=== PATIENT | female | born 1940 | race Caucasian/White ===

== ENCOUNTER 2019-09-01 05:47 | Outpatient (RCR) | payer MEDICARE, MEDICAID, OTHER, SELFPAY | END 2019-09-05 00:01 | LOC: ONCMED 05:47 | PROVIDERS: Family Provider Family Medicine; Visit Provider Internal Medicine Medical Oncology | DX: D46.1 Refractory anemia with ring sideroblasts (principal); E11.9 Type 2 diabetes mellitus without complications; I10 Essential (primary) hypertension; M19.90 Unspecified osteoarthritis, unspecified site; F41.8 Other specified anxiety disorders; L89.129 Pressure ulcer of left upper back, unspecified stage; F03.90 Unspecified dementia, unspecified severity, without behavioral disturbance, psychotic disturbance, mood disturbance, and anxiety; L89.159 Pressure ulcer of sacral region, unspecified stage; Z79.899 Other long term (current) drug therapy; Z79.891 Long term (current) use of opiate analgesic; Z79.84 Long term (current) use of oral hypoglycemic drugs | CPT/HCPCS: 36415 ×5; 36430 ×4; 36591; 80053 ×3; 82274; 82728 ×3; 83036; 83540 ×3; 83550 ×3; 83615 ×2; 85007; 85025 ×6; 86850 ×2; 86900 ×3; 86901 ×3; 86920 ×2; 96374 ×2; 99214; J1642 ×3; J1940 ×2; J7050 ×2; P9016 ×4; P9037 ==

== ENCOUNTER 2019-10-06 08:36 | Outpatient (RCR) | payer MEDICARE, OTHER, MEDICAID, SELFPAY | END 2019-10-06 23:59 | disposition home or self-care (01) | LOC: ONCMED 08:36 | PROVIDERS: Family Provider Family Medicine; Visit Provider Internal Medicine Medical Oncology | DX: D46.1 Refractory anemia with ring sideroblasts (principal); D47.3 Essential (hemorrhagic) thrombocythemia; R63.4 Abnormal weight loss; Z68.27 Body mass index [BMI] 27.0-27.9, adult; I10 Essential (primary) hypertension; E11.9 Type 2 diabetes mellitus without complications; M19.90 Unspecified osteoarthritis, unspecified site; F41.8 Other specified anxiety disorders; Z98.84 Bariatric surgery status ==

== ENCOUNTER 2019-10-08 06:00 | Outpatient (CLI) | payer MEDICARE, OTHER, MEDICAID, SELFPAY | END 2019-10-08 06:01 | disposition home or self-care (01) | LOC: LAB 09-22 15:17 | PROVIDERS: Family Provider Family Medicine; PCP Family Medicine; Visit Provider Nurse Practitioner Family | DX: E03.9 Hypothyroidism, unspecified (principal) | CPT/HCPCS: 84443 ==

== ENCOUNTER 2019-11-02 08:50 | Outpatient (RCR) | payer MEDICARE, OTHER, MEDICAID, SELFPAY ==
[2019-10-12 17:33] LABS: Basophils % 0.1 %; Eosinophils # 0.1 10^3/uL (0.0-0.8); Eosinophils % 0.8 %; Hematocrit 34.2 % (37.0-47.0); Hemoglobin 10.7 g/dL (11.5-15.3); Lymphocytes # 2.8 10^3/uL (0.8-4.8); Lymphocytes % 27.1 %; Mean Corpuscular HGB Conc 31.3 g/dL (30.0-36.0); Mean Corpuscular Hemoglobin 30.1 pg (28.0-34.0); Mean Corpuscular Volume 96.1 fL (81-99); Mean Platelet Volume 12.3 fL (7.4-10.4); Monocytes # 2.2 10^3/uL (0.2-0.9); Monocytes % 21.3 %; Neutrophils # 5.1 10^3/uL (1.8-7.7); Neutrophils % 49.2 %; Nucleated Red Blood Cells % 0 %; Platelet Count 37 10^3/cmm (130-400); Red Blood Count 3.56 10^6/uL (4.1-5.3); Red Cell Distribution Width 14.3 % (12.1-15.1); White Blood Count 10.4 10^3/uL (4.0-10.0)
[2019-10-19 15:51] LABS: Basophils % 0.2 %; Eosinophils # 0.1 10^3/uL (0.0-0.8); Eosinophils % 0.8 %; Hematocrit 28.8 % (37.0-47.0); Hemoglobin 8.8 g/dL (11.5-15.3); Lymphocytes # 2.5 10^3/uL (0.8-4.8); Lymphocytes % 23.9 %; Mean Corpuscular HGB Conc 30.6 g/dL (30.0-36.0); Mean Corpuscular Hemoglobin 28.5 pg (28.0-34.0); Mean Corpuscular Volume 93.2 fL (81-99); Mean Platelet Volume 12.7 fL (7.4-10.4); Monocytes # 2.4 10^3/uL (0.2-0.9); Monocytes % 22.6 %; Neutrophils % 48.3 %; Nucleated Red Blood Cells % 0 %; Platelet Count 44 10^3/cmm (130-400); Red Blood Count 3.09 10^6/uL (4.1-5.3); Red Cell Distribution Width 14.2 % (12.1-15.1); White Blood Count 10.4 10^3/uL (4.0-10.0)
[2019-10-19 22:08] LABS: Slide Review Slide Review Perform
--- NOTE | 2019-10-22 06:40 | ONC FU_ITS ---
Dr. Walden Patient Follow-Up Note Patient: Carole Marcelo Unit #: [id number]: 1940 Dicatated By: Wilner Walden M.D.Date of Visit:Oct 20, 2019 Onc Med Follow-up/Prog Note Chief Complaint: Myelodysplastic syndrome. 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 She has been anemic for several years. Her recent records included several blood counts dating back to 07/26/2016. At that time her hemoglobin was 8.8 g with hematocrit 27.0%. The red cell indices were macrocytic with MCV 107 and MCH 35. White blood cell count was 8100 and the platelet count was 448,000. The reported different included 65% neutrophils, 26% lymphocytes, 6% monocytes, 3% eosinophils, and 1% basophils. Her subsequent blood counts had shown some variability in the hemoglobin/hematocrit levels. However, as of 08/08/2016 the hemoglobin was down to 7.4 g with white blood cell count 8000 and platelet count 437,000. Other laboratory studies at that time included an uncorrected reticulocyte count of 1.6%, normal total bilirubin at 0.9 mg/dL, and elevated B12 level at 1451 pg/mL. She was not transfused during that time, but she did report having required transfusion with a previous knee surgery. I had seen her initially on 09/21/2016. CBC at that time showed hemoglobin 7.8 g with MCV 106. The white blood cell count was 7300 and the platelet count was 367,000. The uncorrected reticulocyte was 1.3%. Haptoglobin was normal 161 mg/dL with LDH normal at 156 U/L. Sedimentation rate was elevated at 76 mm/hour. Serum iron studies show transferrin saturation 23%. Ferritin was elevated at 795 ng/mL. Protein electrophoresis was normal. She underwent bone marrow aspiration/biopsy on 10/24/2016. The marrow was hypercellular, estimated at 90%. Megakaryocytes were noted to be increased with 5-10% exhibiting dyspoiesis. The red cell precursors also exhibited significant dyspoiesis. Blasts were reported at 2%. Iron stores were 2+. Ring sideroblasts were noted to comprise 15% of the population. The FISH panel for MDS was unrevealing and the standard chromosome analysis was normal. The findings were consistent with myelodysplastic syndrome (MDS with ring sideroblasts) versus a myelodysplastic/myeloproliferative neoplasm (MDS/MDN with ring sideroblasts and thrombocytosis). Her revised IPSS (IPSS-R) calculated to 2.5, low risk. Her other medical illnesses include hypertension, type II diabetes, degenerative arthritis, and anxiety/depression. She is hard of hearing. She is a nonsmoker. INTERIM HISTORY: On 12/25/2016 she began a trial of therapy with Procrit at 40,000 units weekly, with her hemoglobin level at 8.9 g and her baseline erythropoietin level 43. Initially she appeared to be showing some response, but it was not sustained. As of 02/05/2017 the Procrit dosage was increased to 60,000 units weekly. During subsequent follow-up her hemoglobin had generally been maintained in the range of 9-10 g. However, on 02/04/2018, there was a decline in her hemoglobin to 8.9 g, and 2 weeks later it had decreased to 7.9 g, at which point she did receive a transfusion of 2 units of PRBC. She was transfused again on 03/05/2018. As of 04/22/2018 her hemoglobin was back down to 7.3 g/dL. I opted not to give her any further Procrit, and she required transfusion again on 04/23/2018. On 05/27/2018 she began a trial of therapy with Revlimid 10 mg daily. She remained transfusion dependent. As of her follow-up visit on 09/10/2018 she had become severely thrombocytopenic, and her white blood cell count at that point had decreased to 2500 with ANC 400. The Revlimid was discontinued. On 09/15/2018 she was admitted to the hospital with generalized weakness. Her ANC was 800, and she did develop low-grade fever. Cultures were negative except 1 blood culture which grew coagulase-negative staph, most likely contaminant. Platelet count was still only 5000, but she had no active bleeding. She was [facility] on 09/25/2018. Her hemoglobin at that point was adequate at 9.9 g. Her white blood cell count had increased to 5900. She was still severely thrombocytopenic. Following discharge she initially was administered plateletpheresis twice weekly, but those were subsequently stopped, as she had no clinical evidence of a significant bleeding tendency. During subsequent follow-up she continued to have fairly marginal performance status, and that was further complicated by worsening of her underlying dementia. She eventually did require usp placement. In August she required extraction of 2 teeth. She was given antibiotic coverage with Augmentin, and she had no bleeding or other complications with the procedure. She otherwise continued symptomatic/supportive care. She has remained transfusion dependent. She is seen for a scheduled visit. She has been feeling okay, though she continues have very limited activity. She is able to get around the [facility] in a wheelchair, but she requires assistance getting in and out of the chair. Her ECOG score is 3. Her appetite is not very good. She is supplementing with Ensure. She has no fever or night sweats. She has no difficulty breathing. She has bowel and bladder incontinence. She has no significant joint or bone pain. She has soreness in her back associated with a decubitus skin ulceration. She has some confusion with her dementia. Medications: ALPRAZolam 1 Tablet (of 0.25 mg) Oral b.i.d. PRN, amLODIPine Besylate 1 Tablet (of 10 mg) Oral daily, Bisacodyl 1 Suppository (of 10 mg) Rectal daily PRN, cloNIDine HCl 1 Tablet (of 0.1 mg) Oral b.i.d., Daily Vitamin Tablet Oral daily, Enema 1 Suppository (of 7-19 g/118mL) Enema Rectal daily PRN, HYDROcodone-Acetaminophen 2 Tablet (of 10-325 mg) Oral q 4 hours PRN, MetFORMIN HCl 1 (500 mg) Tablet Oral daily, Milk of Magnesia 30 mL (of 400 mg/5mL) Suspension Oral daily PRN, Mirtazapine 7.5 (7.5 mg) Tablet Oral daily, Namenda 1 Tablet (of 10 mg) Oral b.i.d., Pantoprazole Sodium 1 Tablet (of 40 mg) Tablet, enteric coated Oral daily, Santyl 1 (250 Units/g) Ointment Topical daily, SM Medicated Body Powder Topical PRN, Synthroid 1 Tablet (of 88 mcg) Oral daily, Valsartan 1 Tablet (of 160 mg) Oral daily, Venlafaxine HCl ER 1 Capsule (of 150 mg) Capsule SR 24 HR Oral daily Allergies: Morphine Sulfate and Sulfa Antibiotics. Review of Systems: Constitutional - Her energy is low and she is mainly sedentary at the [facility]. Her appetite is poor, but she is drinking protein shakes. Her weight is up a few pounds. No fever, chills, hot flashes, or night sweats. ECOG score is 3, ENMT - She has sinus drainage. No mouth sores. No sore throat or difficulty swallowing, Hematologic/Lymphatic - She bruises easily, Respiratory - No shortness of breath. No cough. No pleuritic pain or hemoptysis, Cardiovascular - No angina pain. No palpitations, Gastrointestinal - No nausea or vomiting. No heartburn or acid reflux. She has diarrhea and is incontinent. No blood in the stool or black stools, Genitourinary (F) - No dysuria or hematuria. No urinary frequency. She has foul smelling urine and is incontinent, Musculoskeletal - No joint or bone pain, Integumentary - She has a bed sore on her back that is painful, Neurologic - No headache. She has vertigo. No numbness/paresthesias or other focal neurologic symptoms. She has trouble with her memory and is very confused. Her hands stay cold and numb, Psychiatric - She has anxiety and depression. No insomnia. Vital Signs: Performed on Oct 20, 2019 08:43 Height - 60.00 in Weight - 144.0 lbs (HIGH) BSA - 1.62 sq.m BMI - 28.12 Temperature - 97.2 F (LOW) Pulse - 83 /min Respiration - 18 /min BP - 95/46 mm(hg) O2 Sat - 95 % (LOW) Pain - 0 Physical Examination: Constitutional - She appears somewhat weak generally and also a little sluggish, Eyes - Sclerae nonicteric. Conjunctivae clear, ENMT - No lesions noted in the oral cavity, Hematologic/Lymphatic - No cervical, clavicular, or axillary adenopathy, Respiratory - Lungs sound clear with good air movement bilaterally, Cardiovascular - Heart rhythm is regular. There is a II/ systolic murmur. There is no gallop or rub noted, Abdomen - Soft. Liver and spleen are not enlarged. There is no abdominal mass or ascites noted and there is no inguinal adenopathy, Extremities - Mild lower extremity edema, Neurologic - No focal neurologic deficits noted. Lab/Imaging: Test performed on Oct 19, 2019 08:10 WBC 10.4 10^9/L RBC 3.09 10^12/L HGB 8.8 g/dL HCT 28.8 % MCV 93.2 fl MCH 28.5 pg MCHC 30.6 g/dL RDW 14.2 % Platelet Count 44 10^9/L MPV 12.7 fL Neutrophils (Gran) 5.0 10^9/L Lymphocytes 2.5 10^9/L Monocytes 2.4 10^9/L Eosinophils 0.1 10^9/L Basophils 0.0 10^9/L Manual Lymphocytes 23.9 % Manual Monocytes 22.6 % Manual Eosinophils 0.8 % Manual Basophils 0.2 % NRBCs 0.0 /100 WBC Impression: 1. Patient with moderately severe, macrocytic anemia. Bone marrow aspiration/biopsy on 10/24/2016 showed findings were consistent with a myelodysplastic syndrome (MDS with ring sideroblasts) or a myelodysplastic/myeloproliferative neoplasm (MDS/MDN with ring sideroblasts and thrombocytosis). Her IPSS-R score calculated to 2.5, low risk. 2. She has significant underlying dementia. Her other medical illnesses include: 3. Hypertension. 4. Type II diabetes. 5. Degenerative arthritis. 6. Anxiety/depression. 7. She has a prior history of gastric banding. In December 2016 she began a trial of therapy with Procrit at 40,000 units weekly, with her hemoglobin at 8.9 g and baseline erythropoietin level 43. She initially appeared to have some response, but it was not sustained. As of 02/05/2017 her Procrit dosage was increased to 60,000 units weekly. During this time she had been showing a significant decline in her performance status. As it turns out, some of that may been related to an [id number] diet pill, as she did feel much better after she stopped taking it. She then continued Procrit at 60,000 units weekly with her target hemoglobin at 10 g. She appeared to have clinical benefit, maintaining her hemoglobin in the range of 9010 g. However, as of February 2018 her hemoglobin had dropped below 8 g. She required transfusion twice that month and again on 04/23/2018. During this time there had been some decline in her performance status. At that point I did opt to discontinue the Procrit. On 05/27/2018 she began a trial of therapy with Revlimid 10 mg daily. She required further transfusions on 05/30/2018 and again on 06/26/2018, but as of her follow-up visit on 07/01/2018 she had tolerated the Revlimid with no apparent adverse effects. During subsequent follow-up she remained transfusion dependent. As of her visit on 09/10/2018 she had become severely thrombocytopenic. She also had moderately severe neutropenia. The Revlimid was put on hold. During subsequent follow-up she there was a very gradual increase in her granulocyte count and in her platelet count, though she remained transfusion dependent and she continued to have pretty marginal performance status. That problem was further complicated due to her significant underlying dementia, which eventually necessitated usp placement. She has since then continued to require transfusion on a regular basis. Her platelet count as fluctuated up and down, but thus far she has not had bleeding complications with it. Her granulocyte count has remained adequate. Her overall clinical status has been stable. Plan: At least for now I will continue to monitor her blood counts weekly and transfuse PRBC as needed. However, with her previous bone marrow showing ring sideroblasts, she may qualify for a trial of therapy with luspatercept, which recently has been shown to have benefit in the treatment of patients with transfusion dependent MDS with ring sideroblasts. Signed By: Wilner Walden M.D. <<Signature on File>>
[2019-10-26 09:24] LABS: Add Urine Culture? Yes; Add Urine Microscopic? YES; Bacteria Urine 4+; Bilirubin Urine Neg (NEGATIVE); Blood Urine Neg (Negative); Glucose Urine UA Norm (Normal); Ketones Urine Negative (Negative); Leukocyte Esterase Urine Negative (Negative); Mucus Urine 1+; Nitrate Urine Negative (Negative); Protein Urine Neg (Negative); Squamous Epithelial Cell Urine 0-4 (0-5); Sulfosalicylic Acid Urine Negative; Urine Appearance Cloudy (CLEAR); Urine Color Yellow (Yellow); Urobilinogen Urine Norm (Negative); pH Urine 8.5 (5-7)
[2019-10-26 11:59] LABS: Basophils % 0.2 %; Eosinophils # 0.1 10^3/uL (0.0-0.8); Eosinophils % 0.5 %; Lymphocytes # 3.1 10^3/uL (0.8-4.8); Lymphocytes % 23.2 %; Mean Corpuscular HGB Conc 33.7 g/dL (30.0-36.0); Mean Corpuscular Hemoglobin 31.7 pg (28.0-34.0); Mean Corpuscular Volume 94.1 fL (81-99); Mean Platelet Volume 12.3 fL (7.4-10.4); Monocytes # 3.9 10^3/uL (0.2-0.9); Monocytes % 28.9 %; Neutrophils # 5.2 10^3/uL (1.8-7.7); Neutrophils % 38.5 %; Nucleated Red Blood Cells % 0.1 %; Platelet Count 42 10^3/cmm (130-400); Red Blood Count 2.21 10^6/uL (4.1-5.3); Red Cell Distribution Width 13.7 % (12.1-15.1); White Blood Count 13.4 10^3/uL (4.0-10.0)
[2019-10-26 13:12] LABS: Slide Review Slide Review Perform
[2019-10-26 13:13] LABS: Hematocrit 20.8 % (37.0-47.0)
[2019-10-27] VITALS (10 sets, daily range): BP systolic 120–148; BP diastolic 58–74; PULSE 84–90; RESP 17–18; TEMP 36.3–36.9; O2SAT 94–100
[2019-10-27] MEDS: diphenhydrAMINE 25 mg Capsule PO (09:00)
[2019-10-27] MEDS: sodium chloride 0.9% 250 ML 999 ML IV (09:00)
[2019-10-27] MEDS: FUROsemide 10 mg/mL SDV 2mL 20 MG IV (11:40)
[2019-10-27] MEDS: acetaminophen 325 mg Tablet 650 MG PO (16:02)
[2019-11-02 15:39] LABS: Basophils % 0.2 %; Eosinophils # 0.1 10^3/uL (0.0-0.8); Eosinophils % 0.6 %; Hematocrit 31.5 % (37.0-47.0); Hemoglobin 10.2 g/dL (11.5-15.3); Lymphocytes # 2.8 10^3/uL (0.8-4.8); Lymphocytes % 23.7 %; Mean Corpuscular HGB Conc 32.4 g/dL (30.0-36.0); Mean Corpuscular Hemoglobin 30.4 pg (28.0-34.0); Mean Corpuscular Volume 93.8 fL (81-99); Mean Platelet Volume 11.2 fL (7.4-10.4); Monocytes # 2.6 10^3/uL (0.2-0.9); Monocytes % 21.5 %; Neutrophils # 5.9 10^3/uL (1.8-7.7); Neutrophils % 49.2 %; Nucleated Red Blood Cells % 0 %; Red Blood Count 3.36 10^6/uL (4.1-5.3); Red Cell Distribution Width 14.6 % (12.1-15.1)
[2019-11-02 16:37] LABS: Platelet Count 30 10^3/cmm (130-400); Slide Review Slide Review Perform
== END 2019-11-06 23:59 | disposition home or self-care (01) ==
LOC: ONCMED 08:50
PROVIDERS: Nurse Practitioner; Family Provider Family Medicine; PCP Family Medicine; Visit Provider Internal Medicine Medical Oncology
DX: D46.1 Refractory anemia with ring sideroblasts (principal); I10 Essential (primary) hypertension; E11.9 Type 2 diabetes mellitus without complications; M19.90 Unspecified osteoarthritis, unspecified site; F41.8 Other specified anxiety disorders; F03.90 Unspecified dementia, unspecified severity, without behavioral disturbance, psychotic disturbance, mood disturbance, and anxiety; L89.109 Pressure ulcer of unspecified part of back, unspecified stage; Z98.84 Bariatric surgery status; Z79.899 Other long term (current) drug therapy; Z79.84 Long term (current) use of oral hypoglycemic drugs
CPT/HCPCS: 36415; 36430; 81003; 85025; 86850; 86900; 87077; 87086; 87186; 99214; J1940; J7050; P9040

== ENCOUNTER 2019-11-17 08:24 | Day surgery (SDC) | payer MEDICARE, MEDICAID, OTHER, SELFPAY ==
[2019-11-17 08:44] VITALS: BP 141/74; PULSE 96; RESP 18; TEMP 36.9; O2SAT 99
[2019-11-17] MEDS: sodium chloride 0.9% 1,000 ML 30 ML IV (09:12)
--- NOTE | 2019-11-17 09:31 | P.ANESASSM_ITS ---
Pre-Anesthetic Assessment Pre-Anesthetic Assessment: Height/Weight: Height 1.63 m Weight 89.811 kg Temp Pulse Resp BP Pulse Ox 98.5 F 96 18 141/74 99 11/17/19 08:44 11/17/19 08:44 11/17/19 08:44 11/17/19 08:44 11/17/19 08:44 Preop Diagnosis: Undesired Port-A-Cath Proposed Procedure: Operation Date: 11/17/19 09:50 Proposed Procedures p Portacath Removal 88448 D64.9(Not Applicable) - Luis Parker MD Last intake: Intake Last Liquid Date 11/17/19 Last Liquid Time 07:00 Last Solid Date 11/16/19 Last Solid Time 19:00 Social: Social History: Tobacco (quit) and No alcohol Exam: Pre-Anes Outpt Exam: alert, clear to auscultation bilaterally (course) and regular rate & rhythm Airway: Submandibular: WNL Cervical ROM: WNL MP: 2 Dentition: Partials (Upper and lower,) History/ROS: No significant history except as noted Pulmonary: Pulmonary: None reported CV/HEM: CV/HEM: HTN : : UTI Hepatic: Hepatic: None reported GI: GI: None reported Musc/skel: Musc/skel: OA/DJD and Weakness (unable to ambulate) Neuropsych: Neuropsych: Dementia Anesthetic Plan: Anesthesia: MAC Risk of > 500 ml blood loss (7ml/kg in children): No Meds/Allergies Current Medications: Current Medications Generic Name Dose Route Start Last Admin Trade Name Freq PRN Reason Stop Dose Admin Sodium Chloride 1,000 mls @ 30 ml s/hr 11/17/19 07:30 11/17/19 09:12 Sodium Chloride 0.9% IV 11/18/19 07:29 30 mls/hr .Q24H BRITTANEY Administration PFSH Anesthesia PFSH: Medical History Arthritis Dementia Diabetes Hypertension Surgical History History of appendectomy (1954) History of arthroplasty of left knee (2010) History of bilateral cataract extraction (2010) History of bone marrow biopsy (2016) History of hysterectomy (1972) with bilateral salpingo-oophorectomy History of removal of cyst (2007) Left breast- Benign History of tonsillectomy (195) History of urinary tract surgery (2008) Urinary incontinence surgery unspecified Family History Father , Age 61 Cancer Prostate Mother , Age 83 Heart problem Brother Myocardial infarction Sister Heart problem Sister Diabetes Denies family history of Anesthesia complication Bleeding disorder Social History Smoking and tobacco status: former smoker Second hand smoke exposure: No Alcohol intake: never Adopted: No Caregiver/support person: No Lives independently: No Housing: Custodial Marital status: / service: No Current occupational status: retired and disabled Current occupational exposures/hazards: No Pets and animals: No History of recent travel: No Sexually active: No Current gender identity: Female Yolanda/[employer]: [employer] Special yolanda needs: No Agree to transfusion: No Financial difficulty paying for basics: Decline to Answer Female Reproductive History: Date of last menstrual period: 11/17/69 Data Anesthesia Cardiac Studies: No Data to Display
[2019-11-17 09:43] LABS: Basophils % 0.2 %; Eosinophils # 0.1 10^3/uL (0.0-0.8); Eosinophils % 0.8 %; Hematocrit 24.5 % (37.0-47.0); Hemoglobin 7.7 g/dL (11.5-15.3); Lymphocytes # 3.1 10^3/uL (0.8-4.8); Lymphocytes % 26.8 %; Mean Corpuscular HGB Conc 31.4 g/dL (30.0-36.0); Mean Corpuscular Hemoglobin 27.8 pg (28.0-34.0); Mean Corpuscular Volume 88.4 fL (81-99); Mean Platelet Volume 11.9 fL (7.4-10.4); Monocytes # 3.9 10^3/uL (0.2-0.9); Monocytes % 33.9 %; Neutrophils # 3.5 10^3/uL (1.8-7.7); Neutrophils % 30.9 %; Nucleated Red Blood Cells % 0 %; Red Blood Count 2.77 10^6/uL (4.1-5.3); Red Cell Distribution Width 14.2 % (12.1-15.1); White Blood Count 11.4 10^3/uL (4.0-10.0)
[2019-11-17 10:17] VITALS: BMI 34.0
--- NOTE | 2019-11-17 10:30 | P.HPUD_ITS ---
H&P update H&P Update: DATE OF SURGERY/PROCEDURE: 11/17/19 DATE H&P PERFORMED: H&P UPDATE INFORMATION: H&P completed within last 30 days and Changes to prior documentation as noted here (Repeat CBC today showed platelets of 21,000 after further discussion with Dr. Walden as he has been seeing the patient for quite some time he believes that clinically would not be of concern and if there is any issue we can always give her platelets later on but at this point he feels comfortable by proceeding of the explantation of the right upper chest Port-A-Cath also I did talk with the power of deputy commonwealth's attorney and she did agree to proceed accordingly) PREOP DIAGNOSIS: Undesired Port-A-Cath PRIMARY INDICATION FOR PROCEDURE: Undesired Port-A-Cath PLANNED PROCEDURE: Operation Date: 11/17/19 09:50 Proposed Procedures p Portacath Removal 34786 D64.9(Not Applicable) - Luis Parker MD Full H&P Medications/Allergies: Current Medications: Current Medications Generic Name Dose Route Start Last Admin Trade Name Freq PRN Reason Stop Dose Admin Sodium Chloride 1,000 mls @ 30 ml s/hr 11/17/19 07:30 11/17/19 09:12 Sodium Chloride 0.9% IV 11/18/19 07:29 30 mls/hr .Q24H BRITTANEY Administration Perinent History: Medical/Surgical History: Medical History (Updated 11/10/19 @ 14:37 by Luis Parker MD) Arthritis (Acute) Dementia (Acute) Diabetes (Acute) Hypertension (Acute) Family History: Family History (Updated 11/09/19 @ 10:36 by Caroline Baird RN) Father , Age 61 Cancer Prostate Mother , Age 83 Heart problem Brother Myocardial infarction Sister Heart problem Sister Diabetes Denies family history of Anesthesia complication Bleeding disorder Social History: Social History Smoking and tobacco status: former smoker Second hand smoke exposure: No Alcohol intake: never Adopted: No Caregiver/support person: No Lives independently: No Housing: Snf Marital status: / service: No Current occupational status: retired and disabled Current occupational exposures/hazards: No Pets and animals: No History of recent travel: No Sexually active: No Current gender identity: Female Yolanda/[employer]ism: [employer] Special yolanda needs: No Agree to transfusion: No Financial difficulty paying for basics: Decline to Answer
[2019-11-17 10:36] LABS: Platelet Count 21 10^3/cmm (130-400)
[2019-11-17 10:37] LABS: Slide Review Slide Review Perform
[2019-11-17 10:39] LABS: Absolute Segmented Neutrophil 2.3 10/cmm (1.6-7.1); Band Neutrophils Absolute 1.1 10^3/cmm (0.0-1.2); Lymphocytes 29 %; Lymphocytes Absolute 3.6 10^3/cmm (1.2-3.4); Monocytes Absolute 3.5 10^3/cmm (0.1-0.6); Segmented Neutrophils 21 %; Total Cells Counted 100 (0-100)
[2019-11-17 10:40] LABS: Blastocytes 1 % (0-0); Platelet Estimate Decreased (Normal)
--- NOTE | 2019-11-17 10:57 | SUR.PREOP ---
DOCTOR SOTO DISCUSSED WITH PT'S DAUGHTER THE CONDITION OF PT'S LAB WORK AND FAMILY AGREED TO PROCEED WITH SURGERY.
[2019-11-17] MEDS: lidocaine 2% INJ 20 mL INJECTION (11:16)
--- NOTE | 2019-11-17 11:38 | P.OP_ITS ---
Operative Report Date of procedure: November 17, 2019 Pre-op Diagnosis: Undesired Port-A-Cath Post-op diagnosis: same Procedure Done: Explantation of right upper chest Port-A-Cath Surgeon: Luis Parker Photographic Platemaker: senior director of global commercial technology solutions Sara Moe Medical student Jostin Elizondo Anesthesia: MAC (PROJECT FINANCE ANALYST Smart) Condition: stable Disposition: same day Brief History: Plan of care; After thorough history physical examination and reviewing the chart, I counseled the patient for Port-A-Cath explanted, indications, risks including pneumothorax and injury of major vascular structures, benefits, and alternatives were all discussed with the patient, patient understands and is interested to proceed. Particular emphasis on potential high risk of bleeding due to low platelets Informed consent per chart Assurance and education All questions have been answered Procedure: Explantation of port; Patient was identified in the holding area and the site of the port was marked by me on the right upper chest, patient was then taken to the operative room and placed in supine position IV propofol was given by the anesthesia provider ,both arms were tucked,Time-out was done verifying the patient's name/date of bir th/planned procedure and destination after the procedure, all were in agreement. SCDs confirmed to be functioning, preoperative antibiotics administered per protocol, and beta mercedez protocol was confirmed, appropriate positioning of the patient was done by me. Prep and drape of the upper chest was done under the usual sterile technique,injection of lidocaine 2% at the site of the planned incision(right upper chest) started by an transverse incision including the previous scar of the Port-A-Cath placement, the port was then explanted after taking down the Prolene sutures attaching the port to the surrounding tissues, at this point the catheter was removed at the same time direct pressure was applied at the site of the right subclavian stick to prevent bleeding. Thorough irrigation of the Port-A-Cath cavity was done followed by hemostasis, pressure was sustained for at least 12 minutes to prevent bleeding at the stick site Closure using 3/0 Vicryl as subdermal sutures was achieved , followed by 4-0 nylon sutures to approximate skin edges , followed by pressure dressing. Count was completed at the end of the procedure Patient tolerated the procedure well Patient was then transferred to the recovery area in stable condition I was present for the whole entire procedure
[2019-11-17 11:40] VITALS: BP 144/49; PULSE 96; RESP 16; TEMP 36.3; O2SAT 95
[2019-11-17 12:50] VITALS: BP 154/87; PULSE 95; RESP 18; TEMP 36.7; O2SAT 98
== END 2019-11-17 12:55 | disposition home or self-care (01) ==
PROVIDERS: Family Provider Family Medicine; PCP Family Medicine; Visit Provider Surgery
PROC: (CPT 36589; principal; 2019-11-17 09:50)
DX: Z45.2 Encounter for adjustment and management of vascular access device (principal); M19.90 Unspecified osteoarthritis, unspecified site; E11.9 Type 2 diabetes mellitus without complications; Z79.84 Long term (current) use of oral hypoglycemic drugs; F03.90 Unspecified dementia, unspecified severity, without behavioral disturbance, psychotic disturbance, mood disturbance, and anxiety; I10 Essential (primary) hypertension; Z82.49 Family history of ischemic heart disease and other diseases of the circulatory system; Z83.3 Family history of diabetes mellitus; Z87.891 Personal history of nicotine dependence
CPT/HCPCS: 36589; 12345; 36415; 85007; 85025; J0690; J2001; J2704; J7030

== ENCOUNTER → 2019-11-25 09:11 | Outpatient (BNVA) | payer MEDICARE, OTHER, MEDICAID, SELFPAY | PROVIDERS: Family Provider Family Medicine; PCP Family Medicine; Visit Provider Specialist | DX: G31.83 Neurocognitive disorder with Lewy bodies (principal); F02.80 Dementia in other diseases classified elsewhere, unspecified severity, without behavioral disturbance, psychotic disturbance, mood disturbance, and anxiety; Z87.891 Personal history of nicotine dependence | CPT/HCPCS: 99214 ==

== ENCOUNTER 2019-12-10 08:25 | Outpatient (RCR) | payer MEDICARE, MEDICAID, OTHER, SELFPAY ==
[2019-12-08 14:02] LABS: Basophils % 0.1 %; Eosinophils % 0.1 %; Lymphocytes # 2.7 10^3/uL (0.8-4.8); Lymphocytes % 32.3 %; Mean Corpuscular Hemoglobin 27.7 pg (28.0-34.0); Mean Corpuscular Volume 89.4 fL (81-99); Mean Platelet Volume 12.6 fL (7.4-10.4); Monocytes # 1.9 10^3/uL (0.2-0.9); Monocytes % 22.2 %; Neutrophils # 3.6 10^3/uL (1.8-7.7); Neutrophils % 42.4 %; Nucleated Red Blood Cells % 0.4 %; Red Blood Count 1.41 10^6/uL (4.1-5.3); White Blood Count 8.4 10^3/uL (4.0-10.0)
[2019-12-08 14:19] LABS: Alanine Aminotransferase 52 U/L (0-33); Albumin Level 3.3 g/dL (3.5-5.2); Alkaline Phosphatase 107 IU/L (35-105); Anion Gap 25.5 (5-19); Aspartate Amino Transferase 71 U/L (0-32); Blood Urea Nitrogen 23 mg/dL (8-23); Calcium 9.2 mg/dL (8.5-10.5); Carbon Dioxide 20 mmol/L (22-29); Chloride 95 mmol/L (98-107); Glucose 201 mg/dL (65-115); Lactate Dehydrogenase 142 U/L (135-214); Potassium 4.5 mmol/L (3.5-5.1); Sodium 136 mmol/L (136-145); Total Bilirubin 0.7 mg/dL (0.15-1.2); Total Protein 6.3 g/dL (6.6-8.7)
[2019-12-08 14:35] LABS: Hematocrit 12.6 % (37.0-47.0); Hemoglobin 3.9 g/dL (11.5-15.3); Platelet Count 10 10^3/cmm (130-400)
[2019-12-08 14:38] LABS: Slide Review Slide Review Perform
[2019-12-10 11:45] LABS: Eosinophils % 0.2 %; Lymphocytes # 3.1 10^3/uL (0.8-4.8); Lymphocytes % 35.4 %; Mean Corpuscular HGB Conc 31.6 g/dL (30.0-36.0); Mean Corpuscular Hemoglobin 27.7 pg (28.0-34.0); Mean Corpuscular Volume 87.7 fL (81-99); Mean Platelet Volume 13.6 fL (7.4-10.4); Monocytes # 1.4 10^3/uL (0.2-0.9); Monocytes % 15.7 %; Neutrophils # 3.9 10^3/uL (1.8-7.7); Neutrophils % 45.3 %; Nucleated Red Blood Cells # 0.1 /100WBC; Nucleated Red Blood Cells % 0.6 %; White Blood Count 8.7 10^3/uL (4.0-10.0)
[2019-12-10 12:18] LABS: Alanine Aminotransferase 48 U/L (0-33); Albumin Level 3.1 g/dL (3.5-5.2); Alkaline Phosphatase 112 IU/L (35-105); Anion Gap 21.6 (5-19); Aspartate Amino Transferase 61 U/L (0-32); Blood Urea Nitrogen 19 mg/dL (8-23); Calcium 9.4 mg/dL (8.5-10.5); Carbon Dioxide 23 mmol/L (22-29); Chloride 96 mmol/L (98-107); Globulin 3.2 g/dL (1.3-4.6); Glucose 119 mg/dL (65-115); Potassium 4.6 mmol/L (3.5-5.1); Sodium 136 mmol/L (136-145); Total Bilirubin 0.7 mg/dL (0.15-1.2); Total Protein 6.3 g/dL (6.6-8.7)
[2019-12-10 13:05] LABS: Hemoglobin 3.6 g/dL (11.5-15.3)
[2019-12-10 13:06] LABS: Hematocrit 11.4 % (37.0-47.0); Platelet Count 11 10^3/cmm (130-400); Slide Review Slide Review Perform
--- NOTE | 2019-12-13 21:05 | ONC FU_ITS ---
[facility] Patient Note Patient: Carole Marcelo Unit #: [id number]: 1940 Dictated By: Abdon SinghDate of Visit: Dec 09, 2019 Onc MED Follow-Up/Prog Note Chief Complaint: Myelodysplastic syndrome. 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 She has been anemic for several years. Her recent records included several blood counts dating back to 07/26/2016. At that time her hemoglobin was 8.8 g with hematocrit 27.0%. The red cell indices were macrocytic with MCV 107 and MCH 35. White blood cell count was 8100 and the platelet count was 448,000. The reported different included 65% neutrophils, 26% lymphocytes, 6% monocytes, 3% eosinophils, and 1% basophils. Her subsequent blood counts had shown some variability in the hemoglobin/hematocrit levels. However, as of 08/08/2016 the hemoglobin was down to 7.4 g with white blood cell count 8000 and platelet count 437,000. Other laboratory studies at that time included an uncorrected reticulocyte count of 1.6%, normal total bilirubin at 0.9 mg/dL, and elevated B12 level at 1451 pg/mL. She was not transfused during that time, but she did report having required transfusion with a previous knee surgery. Dr Walden had seen her initially on 09/21/2016. CBC at that time showed hemoglobin 7.8 g with MCV 106. The white blood cell count was 7300 and the platelet count was 367,000. The uncorrected reticulocyte was 1.3%. Haptoglobin was normal 161 mg/dL with LDH normal at 156 U/L. Sedimentation rate was elevated at 76 mm/hour. Serum iron studies show transferrin saturation 23%. Ferritin was elevated at 795 ng/mL. Protein electrophoresis was normal. She underwent bone marrow aspiration/biopsy on 10/24/2016. The marrow was hypercellular, estimated at 90%. Megakaryocytes were noted to be increased with 5-10% exhibiting dyspoiesis. The red cell precursors also exhibited significant dyspoiesis. Blasts were reported at 2%. Iron stores were 2+. Ring sideroblasts were noted to comprise 15% of the population. The FISH panel for MDS was unrevealing and the standard chromosome analysis was normal. The findings were consistent with myelodysplastic syndrome (MDS with ring sideroblasts) versus a myelodysplastic/myeloproliferative neoplasm (MDS/MDN with ring sideroblasts and thrombocytosis). Her revised IPSS (IPSS-R) calculated to 2.5, low risk. Her other medical illnesses include hypertension, type II diabetes, degenerative arthritis, and anxiety/depression. She is hard of hearing. She is a nonsmoker. INTERIM HISTORY: On 12/25/2016 she began a trial of therapy with Procrit at 40,000 units weekly, with her hemoglobin level at 8.9 g and her baseline erythropoietin level 43. Initially she appeared to be showing some response, but it was not sustained. As of 02/05/2017 the Procrit dosage was increased to 60,000 units weekly. During subsequent follow-up her hemoglobin had generally been maintained in the range of 9-10 g. However, on 02/04/2018, there was a decline in her hemoglobin to 8.9 g, and 2 weeks later it had decreased to 7.9 g, at which point she did receive a transfusion of 2 units of PRBC. She was transfused again on 03/05/2018. As of 04/22/2018 her hemoglobin was back down to 7.3 g/dL. It was opted not to give her any further Procrit, and she required transfusion again on 04/23/2018. On 05/27/2018 she began a trial of therapy with Revlimid 10 mg daily. She remained transfusion dependent. As of her follow-up visit on 09/10/2018 she had become severely thrombocytopenic, and her white blood cell count at that point had decreased to 2500 with ANC 400. The Revlimid was discontinued. On 09/15/2018 she was admitted to the hospital with generalized weakness. Her ANC was 800, and she did develop low-grade fever. Cultures were negative except 1 blood culture which grew coagulase-negative staph, most likely contaminant. Platelet count was still only 5000, but she had no active bleeding. She was discharged to the custodial on 09/25/2018. Her hemoglobin at that point was adequate at 9.9 g. Her white blood cell count had increased to 5900. She was still severely thrombocytopenic. Following discharge she initially was administered platelet pheresis twice weekly, but those were subsequently stopped, as she had no clinical evidence of a significant bleeding tendency. During subsequent follow-up she continued to have fairly marginal performance status, and that was further complicated by worsening of her underlying dementia. She eventually did require custodial placement. In August she required extraction of 2 teeth. She was given antibiotic coverage with Augmentin, and she had no bleeding or other complications with the procedure. She otherwise continued symptomatic/supportive care. She has remained transfusion dependent. Her family recently elected to stop doing transfusions. The requested that her Port-A-Cath be removed as well. She was seen in October at which time her hemoglobin was 10.2 after transfusion services and her platelet count was 30. Follow-up hemoglobin in November was 7.2 and platelet count was 15. Dr. Walden had talked with them about possibly starting her on luspatercept as it has shown response in MDS with ring siderblasts. We were able to obtain the drug for her through the drug company. Labs were drawn on Mrs. Marcelo yesterday and a hemoglobin of 3.9 was reported. Her platelet count was noted to be 10,000. Her white count was 8.4 with a neutrophil count of 3600. Creatinine 0.9 potassium 4.6 LFTs were. She is here today for transfusion services and to start the luspatercept. Her dementia has worsened since last time I saw her. She is jovial when she answers and seems to answer appropriately but her responses are very limited. She follows commands well. Her daughter Rocío accompanies her to the visit today. Rocío states that she is had no new problems that she is aware of other than they have noticed that she is been really draggy and more short of breath. She had no fevers or chills no mouth sores sore throat or difficulty swallowing. She states she is not been aware of any problems with her bowels or bladder. And Ms. Marcelo has denied any new pain. Her ECOG is 4 today due to the hemoglobin of 3.9. Past Medical History: Anxiety/depression Degenerative arthritis Hypertension Type II diabetes Past Surgical History: PREVNAR 13 - IS DUE TO HAVE ON 09/25/2019 AFLURIA QUAD (FLU VACCINE) in 2019 Bone marrow biopsy in 2016 Right total knee arthroplasty in 2013 Bilateral cataract excisions in 2010 Left total knee arthroplasty in 2010 Urinary incontinence surgery unspecified in 2008 Excision of benign cyst from the left breast in 2007 Lap band in 2005 Hysterectomy with bilateral salpingo-oophorectomy in 1972 Tonsillectomy in 1958 Appendectomy in 1954 Allergies: Morphine Sulfate and Sulfa Antibiotics. Medications: ALPRAZolam 1 Tablet (of 0.25 mg) Oral b.i.d. PRN Bisacodyl 1 Suppository (of 10 mg) Rectal daily PRN cloNIDine HCl 1 Tablet (of 0.1 mg) Oral daily Daily Vitamin Tablet Oral daily Enema 1 Suppository (of 7-19 g/118mL) Enema Rectal daily PRN HYDROcodone-Acetaminophen 2 Tablet (of 10-325 mg) Oral q 4 hours PRN MetFORMIN HCl 1 (500 mg) Tablet Oral daily Milk of Magnesia 30 mL (of 400 mg/5mL) Suspension Oral daily PRN Mirtazapine 1 Tablet (of 15 mg) Oral daily Pantoprazole Sodium 1 Tablet (of 40 mg) Tablet, enteric coated Oral daily Santyl 1 (250 Units/g) Ointment Topical daily SM Medicated Body Powder Topical PRN Synthroid 1 Tablet (of 88 mcg) Oral daily Venlafaxine HCl ER 1 Capsule (of 150 mg) Capsule SR 24 HR Oral daily Family History: Ms. Marcelo's mother at age 83: hear problems. Ms. Marcelo's father at age 61: prostate cancer. Ms. Marcelo has 2 brothers: 2 . Ms. Marcelo's first brother's heart attack. Another brother's broken neck. She has 2 sisters: 2 . Father of prostate cancer at age 61. Her mother of heart disease at age 83. A brother of heart attack age 78, and 1 sister also may have of heart disease. Another sister with complications of diabetes. Social History: Ms. Marcelo is and she is retired. Ms. Marcelo has never smoked. She has no history of drinking. Ms. Marcelo reports the following support systems: lives with spouse, significant other, family, or friends, lives in a custodial, supportive family/friends willing to assist with needs, and adequate transportation available for expected visits. Her diet consists of regular meals. She indicates her activity level as: daily activities. She is a nonsmoker. She does not drink alcohol. Review Of Symptoms: Constitutional Denies fevers, chills, night sweats. She has excessive fatigue. Daughter reports that Ms Marcelo is losing weight due to dementia and not eating. Ms Marcelo is in a care home facility. Allergic/Immunologic No reactions. ENMT Denies changes in hearing, sore throat, mouth sores, difficulty or changes in swallowing ability, and/or sinus drainage. Endocrine No diabetes, thyroid disease or hormone replacement. Denies hot flashes or night sweats. Hematologic/Lymphatic Denies bleeding. The patient denies any tender or palpable lymph nodes. Respiratory Denies dyspnea on exertion, chest pain, cough or hemoptysis. Denies orthopnea. Cardiovascular Denies anginal chest pain, palpitations or orthopnea. SOB with exertion. Gastrointestinal Denies nausea, vomiting, diarrhea, GI bleeding, or constipation. Denies change in bowel habits and/or stool color, no heartburn or early satiety. Genitourinary (F) No hematuria, hesitancy, incontinence, vaginal bleeding, discharge or other problems with urination. Musculoskeletal Denies joint pain, swelling or redness. No decreased range of motion. Still requires 2 person assist with transferring from bed to chair, etc. Integumentary Denies chronic rashes, inflammation, ulcerations or skin changes. Neurologic Denies headache, blurred vision, and no areas of focal weakness or numbness. Normal gait. No sensory problems. Psychiatric Denies insomnia, depression, kate or mood swings. Vital Signs: Performed on Dec 09, 2019 09:08 Height - 60.00 in Weight - 131.0 lbs (LOW) BSA - 1.56 sq.m BMI - 25.58 Temperature - 97.5 F (LOW) Pulse - 95 /min Respiration - 24 /min BP - 101/51 mm(hg) O2 Sat - 86 % (LOW) Pain - 0,4 - Completely disabled, totally confined to bed or chair. Cannot carry on any self-care. (ECOG) Physical Examination: Constitutional Alert. no acute distress. Skin pale, warm and dry. Head Normocephalic; atraumatic. Eyes Conjunctivae and sclerae are clear and without icterus. Pupils are reactive and equal. Hematologic/Lymphatic No petechiae or purpura. Respiratory Lungs are clear to auscultation without rhonchi or wheezing. Cardiovascular Regular rate and rhythm of heart without murmurs,clicks, gallops or rubs. Abdomen Non-tender, non-distended, no masses, ascites. No guarding or rebound tenderness. No pulsatile masses. Back/Spine Non-tender to palpation. Extremities No visible deformities, no cyanosis, clubbing or edema. Pulses 4+ and equal bilaterally. Musculoskeletal No tenderness or swelling, normal range of motion but generalized weakness noted in lower extremities. She does require 2 person assist to transfer from the chair to exam table and transport vehicle. Integumentary No rashes or lesions. Neurologic Pleasant and alert Psychiatric Alert and orientation is inconsistent. Coherent speech when she does speak. Mrs Marcelo's daughter verbalizes understanding of our discussions today. Laboratory:Test performed on Dec 08, 2019 12:45 LDH (Total) 142 U/L Sodium 136 mmol/L Potassium 4.5 mmol/L Chloride 95 mmol/L CO2 20 mmol/L Anion Gap 25.5 BUN 23 mg/dL Creatinine 0.9 mg/dL Cr Clearance (Est) 49.11 mL/min Glucose 201 mg/dL Calcium 9.2 mg/dL Protein, Total 6.3 g/dL Albumin 3.3 g/dL Globulin 3.0 g/dL Bilirubin, Total 0.7 mg/dL ALT (SGPT) 52 U/L AST (SGOT) 71 U/L Alkaline Phosphatase 107 IU/L WBC 8.4 10 3/uL RBC 1.41 10 6/uL HGB 3.9 g/dL HCT 12.6 % MCV 89.4 fL MCH 27.7 pg MCHC 31.0 g/dL RDW 14.0 % Platelet Count 10 10 3/cmm MPV 12.6 fL Neutrophils 3.6 10 3/uL Lymphocytes 2.7 10 3/uL Monocytes 1.9 10 3/uL Eosinophils 0.0 10 3/uL Basophils 0.0 10 3/uL Neutrophil % 42.4 % Lymphocyte % 32.3 % Monocyte % 22.2 % Eosinophil % 0.1 % Basophils % 0.1 % CBC Slide Review Slide Review Perform SLIDE REVIEW AGREES WITH AUTOMATED RESULT Impression: 1. Patient with moderately severe, macrocytic anemia. Bone marrow aspiration/biopsy on 10/24/2016 showed findings were consistent with a myelodysplastic syndrome (MDS with ring sideroblasts) or a myelodysplastic/myeloproliferative neoplasm (MDS/MDN with ring sideroblasts and thrombocytosis). Her IPSS-R score calculated to 2.5, low risk. 2. She has significant underlying dementia. Her other medical illnesses include: 3. Hypertension. 4. Type II diabetes. 5. Degenerative arthritis. 6. Anxiety/depression. 7. She has a prior history of gastric banding. In December 2016 she began a trial of therapy with Procrit at 40,000 units weekly, with her hemoglobin at 8.9 g and baseline erythropoietin level 43. She initially appeared to have some response, but it was not sustained. As of 02/05/2017 her Procrit dosage was increased to 60,000 units weekly. During this time she had been showing a significant decline in her performance status. As it turns out, some of that may been related to an [id number] diet pill, as she did feel much better after she stopped taking it. She then continued Procrit at 60,000 units weekly with her target hemoglobin at 10 g. She appeared to have clinical benefit, maintaining her hemoglobin in the range of 9010 g. However, as of February 2018 her hemoglobin had dropped below 8 g. She required transfusion twice that month and again on 04/23/2018. During this time there had been some decline in her performance status. At that point I did opt to discontinue the Procrit. On 05/27/2018 she began a trial of therapy with Revlimid 10 mg daily. She required further transfusions on 05/30/2018 and again on 06/26/2018, but as of her follow-up visit on 07/01/2018 she had tolerated the Revlimid with no apparent adverse effects. During subsequent follow-up she remained transfusion dependent. As of her visit on 09/10/2018 she had become severely thrombocytopenic. She also had moderately severe neutropenia. The Revlimid was put on hold. During subsequent follow-up she there was a very gradual increase in her granulocyte count and in her platelet count, though she remained transfusion dependent and she continued to have pretty marginal performance status. That problem was further complicated due to her significant underlying dementia, which eventually necessitated custodial placement. She has since then continued to require transfusion on a regular basis. Her platelet count as fluctuated up and down, but thus far she has not had bleeding complications with it. Her granulocyte count has remained adequate. Her overall clinical status has been stable. She presents with a hemoglobin on 3.9 today and her port a cath has been removed as Carole and her family elected not to pursue any further transfusions. She is also been approved for trial of luspatercept. Plan: 1. Proceed with a trial of therapy with luspatercept, which recently has been shown to have benefit in the treatment of patients with transfusion dependent MDS with ring sideroblasts. She will receive her first dose today. 2. Transfusion services of 2 units of packed red blood cells was planned for today. She had multiple attempts on IV steroids which were all unsuccessful. It was elected to forego transfusion services today and try to hydrate her orally. 3. I spoke at lengths with Rocío, Carole's daughter regarding the inability to obtain IV access. As noted above her port was removed last fall/early winter. It was elected to recheck her blood counts after 1 week of the trial of the luspatercept. If hospice will allow us to place her on service and continue the trial of the luspatercept, we will enroll her in hospice. I did inform Rocío that her condition is certainly worsened over the last month. It is not known how well she will respond to the of luspatercept that given that her hemoglobin is so low to start with. We did discuss that her blood counts are extremely low. She is adapted well as it has not been a gradual decline in hemoglobin. However she is at a critically low hemoglobin. We did discuss that she could have a very short time if the luspatercept does not work and we cannot give her blood. This includes less than a week if her hemoglobin continues to drop. Rocío is aware of that. She states that she would be willing to have hospice involved but Mrs. Marcelo also resides in care home facility. 4. A CBC and typenex was scheduled for tomorrow in the event that she had transfusion services today. 5. Rocío is aware that should she feel that Ms. Wellss condition is worsening or if she is concerned about a significant decline she has the option of taking her to the emergency room but is aware of that this condition is not curable. And currently the treatment options are limited due to IV access. If the family decides they do not want to do persistent transfusion services there is no need to re-establish a Port-A-Cath. Rocío has indicated she does not want to pursue a Port-A-Cath at this time. 5. We will plan to check a CBC CMP and typenex in 1 week for monitoring of the luspatercept. 6. Rocío states she understands the severity of Ms. Duarte's current condition and the fact that she may not live much longer. Rocío was reassured to call us if she has any further questions or we can be of any assistance otherwise we will see what her labs look like in 1 week. 7. We did discuss potential side effects of the luspatercept including but not limited to increased blood pressure, headache, fatigue, dizziness, diarrhea, abdominal pain increased serum bilirubin and increased serum AST, alk phos and increased direct serum bilirubin, arthralgia, cough and increased in ischemic stroke, and increased risk of blood clots. Rocío was advised always a risk of hypersensitivity reaction and in injection site reaction. Greater than 50 minutes was spent total [id number] time with Ms. Marcelo and her daughter Rocío and conversation regarding her care and plan of care today. Signed By: Abdon Singh-, AOCNP Wilner Walden MD <<Signature on File>>
== END 2020-01-05 23:59 | disposition home or self-care (01) ==
LOC: ONCMED 08:25
PROVIDERS: Internal Medicine Medical Oncology; Family Provider Family Medicine; PCP Family Medicine; Visit Provider Nurse Practitioner
DX: D46.1 Refractory anemia with ring sideroblasts (principal); I10 Essential (primary) hypertension; E11.9 Type 2 diabetes mellitus without complications; M19.90 Unspecified osteoarthritis, unspecified site; F41.8 Other specified anxiety disorders; F03.90 Unspecified dementia, unspecified severity, without behavioral disturbance, psychotic disturbance, mood disturbance, and anxiety; Z98.84 Bariatric surgery status; Z96.653 Presence of artificial knee joint, bilateral; Z79.01 Long term (current) use of anticoagulants; Z79.84 Long term (current) use of oral hypoglycemic drugs; Z79.899 Other long term (current) drug therapy
CPT/HCPCS: 80053; 83615; 85025; 86850; 86900; 86920; 96372; 99215; C9399